=== PATIENT | female | born 1935 | race American Indian/Alaskan Native ===

== ENCOUNTER 2017-08-19 14:09 | Emergency (ER) | payer MEDICARE, BC ==
[2017-08-19 14:34] VITALS: BMI 20.7
[2017-08-19 14:38] VITALS: RESP 18; TEMP 97.9
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
--- NOTE | 2017-08-19 16:28 | CT ---
PROCEDURE: CT HEAD WITHOUT CONTRAST. HISTORY: INJURY COMPARISON: None available. TECHNIQUE: Axial computed tomography images were obtained through the head/brain without intravenous contrast. Radiation dose: Total exam DLP = 673.73 mGy-cm. This CT exam was performed using one or more of the following dose reduction techniques: Automated exposure control, adjustment of the mA and/or kV according to patient size, and/or use of iterative reconstruction technique. FINDINGS: HEMORRHAGE: No intracranial hemorrhage. BRAIN: No mass effect or edema. Mild age-appropriate cerebral atrophy. No evidence of acute infarct. VENTRICLES: Unremarkable. No hydrocephalus. CALVARIUM: Unremarkable. PARANASAL SINUSES: Unremarkable as visualized. No significant inflammatory changes. MASTOID AIR CELLS: Unremarkable as visualized. No inflammatory changes. OTHER FINDINGS: None. IMPRESSION: No evidence of intracranial hemorrhage.
--- NOTE | 2017-08-19 16:36 | CT ---
PROCEDURE: CT scan of the cervical spine dated 08/19/2017. HISTORY: <INJURY> COMPARISON: None available. TECHNIQUE: Axial computed tomography images were obtained of the cervical spine without the use of intravenous contrast. Coronal and sagittal reformatted images were created and reviewed. Radiation dose: Total exam DLP = mGy-cm. This CT exam was performed using one or more of the following dose reduction techniques: Automated exposure control, adjustment of the mA and/or kV according to patient size, and/or use of iterative reconstruction technique. FINDINGS: VERTEBRAE: No acute compression fractures no retropulsed fragments. Vertebral bodies exhibit normal stature of. Vertebral bodies and facets normally aligned. DISCS/SPINAL CANAL/NEURAL FORAMINA: Minor multilevel degenerative spondylosis. At the C2-C3 level, there is relatively adequate disc height. No disc herniation or significant disc bulge. Facet joints are slightly overgrown. Central canal and exit foramina appear adequate. . At the C3-C4 level, there is also adequate disc height. No disc herniation or significant disc bulge. Facets are slightly prominent as well. Central canal and exit foramina are also adequate. At the C4-C5 level, there is relatively adequate disc height. Small central and bilateral disc bulge indents the ventral surface of the thecal sac nearly reaching but not significantly compressing the ventral surface of the cord so far as can be seen. Overall central canal is quite capacious at this level. Facet joints are mildly hypertrophic right greater than left. . Exit foramina appear adequate. At the C5-C6 level, there is disc space narrowing, cortical endplate irregularity -eburnation with small subchondral cystic changes. Asymmetric disc ridge complex larger on the left than right and contiguous with hypertrophic uncovertebral joint changes. Facets also slightly overgrown. There is mild compressive effects on the ventral surface of the thecal sac and spinal cord more so on the left side. Facet joints also mildly hypertrophic. Central canal measured at midline is adequate. Left exit foramen is narrowed. Right exit foramen is adequate. . At the C6-C7 level, the there is minor disc space narrowing. Small central and bilateral disc bulge appears to flatten the ventral surface of the thecal sac however due to crossing streak and beam hardening artifact evaluation for cord compression somewhat limited. The overall central bony canal appears marginal to adequate on the not withstanding the aforementioned artifact. Degenerative changes are also noted at the C7-T1 level. PARASPINAL SOFT TISSUES: Unremarkable. OTHER FINDINGS: Mild biapical pleural thickening and parenchymal scarring changes left greater than right. IMPRESSION: No acute fractures. Mild multilevel degenerative spondylosis most notably affecting the C5-C6 level as above.
--- NOTE | 2017-08-19 17:03 | RAD ---
PROCEDURE: Radiographs of the pelvis. HISTORY: INJURY COMPARISON: None. FINDINGS: BONES: Pelvic Bones: Unremarkable. Hips: Grossly unremarkable. JOINTS: Sacroiliac Joints: Unremarkable. Pubic Symphysis: Unremarkable. OTHER FINDINGS: None. IMPRESSION: Unremarkable radiographs of the pelvis.
--- NOTE | 2017-08-19 17:04 | RAD ---
PROCEDURE: Bilateral Feet Radiographs. HISTORY: INJURY COMPARISON: None. FINDINGS: BONES: Right Foot: Normal. No fracture. Left Foot: Osteotomy distal aspect 3rd and 4th metatarsals. No fracture JOINTS: Right Foot: Normal. No osteoarthritis. Left Foot: Normal. No osteoarthritis. SOFT TISSUES: Right Foot: Normal. Left Foot: Normal. OTHER FINDINGS: None. IMPRESSION: Status post osteotomy distal 3rd and 4th metatarsal of left foot. No acute fracture.
--- NOTE | 2017-08-19 17:04 | RAD ---
PROCEDURE: Radiographs of the left tibia and fibula. HISTORY: INJURY COMPARISON: None available. TECHNIQUE: Frontal and lateral views obtained. FINDINGS: BONES: No fracture or destructive lesion. JOINT SPACES: Unremarkable. OTHER FINDINGS: None. IMPRESSION: Unremarkable radiographs of the left tibia and fibula.
--- NOTE | 2017-08-19 17:06 | RAD ---
PROCEDURE: Left Ankle Radiographs. HISTORY: INJURY COMPARISON: None FINDINGS: BONES: Normal. No fracture. JOINTS: Normal. No osteoarthritis. Ankle mortise maintained. Talar dome intact SOFT TISSUES: Normal. OTHER FINDINGS: None. IMPRESSION: Normal left ankle radiographs.
[2017-08-19 17:12] VITALS: BP 138/76; PULSE 74; O2SAT 98
== END 2017-08-19 17:12 | disposition home or self-care (01) ==
LOC: ED 14:09
DX: S90.30XA Contusion of unspecified foot, initial encounter (principal); V03.90XA Pedestrian on foot injured in collision with car, pick-up truck or van, unspecified whether traffic or nontraffic accident, initial encounter; Y92.410 Unspecified street and highway as the place of occurrence of the external cause